=== PATIENT | male | born 1940 | race Caucasian/White ===

== ENCOUNTER → 2019-01-18 | Outpatient (CLI) | payer MEDICARE, BC | END | disposition home or self-care (01) | LOC: CVU 07:01 | PROVIDERS: ATTEND Internal Medicine Cardiovascular Disease | DX: Z01.818 Encounter for other preprocedural examination (principal); I65.23 Occlusion and stenosis of bilateral carotid arteries; I34.0 Nonrheumatic mitral (valve) insufficiency; I63.81 Other cerebral infarction due to occlusion or stenosis of small artery; I25.10 Atherosclerotic heart disease of native coronary artery without angina pectoris; I10 Essential (primary) hypertension; E78.5 Hyperlipidemia, unspecified; Z95.1 Presence of aortocoronary bypass graft | CPT/HCPCS: 93306; 93880 ==

== ENCOUNTER 2019-01-24 06:27 | Inpatient (IN) | payer MEDICARE, BC ==
[~2019-01-24] VITALS: Ht 172.7 cm; Wt 91.9 kg
[2019-01-24] MEDS ORDERED: FENTANYL PF 250 MCG/5ML ONE (07:03)
[2019-01-24] MEDS ORDERED: MIDAZOLAM 1 MG/ML, 2ML ONE (07:03)
[2019-01-24] MEDS ORDERED: THROMBIN 20,000 UNIT VIAL TP ONE (07:14)
[2019-01-24] MEDS ORDERED: BUPIVACAINE/EPI 0.5% 1:200K ONE (07:14)
[2019-01-24] MEDS ORDERED: MICROFIBRILLAR COLLAGEN 1 GM TP ONE (07:14)
[2019-01-24] MEDS ORDERED: BACITRACIN 50,000 UNIT ONE (07:14)
[2019-01-24] MEDS ORDERED: ASPI-496 PO (07:36)
[2019-01-24] MEDS ORDERED: LACTATED RINGERS 1,000 ML IV SCH (07:36)
[2019-01-24] MEDS ORDERED: EZET10TA18 PO (07:36)
[2019-01-24] MEDS ORDERED: METO1TAB28 PO (07:36)
[2019-01-24] MEDS ORDERED: ATOR20TA37 PO (07:36)
[2019-01-24] MEDS ORDERED: OMEP-110 PO (07:36)
[2019-01-24] MEDS ORDERED: THROMBIN 5,000 UNIT VIAL TP ONE (07:43)
[2019-01-24] MEDS ORDERED: LIDOCAINE-MPF 1%, 2ML INFIL ONE (08:00)
[2019-01-24 08:02] VITALS: BP 109/74
[2019-01-24] MEDS ORDERED: OXYcodone 5 MG/5 ML ORAL.SOL UDC PO PRN (11:00)
[2019-01-24] MEDS ORDERED: PROMETHAZINE 25 MG/ML, 1ML IV PRN (11:00)
[2019-01-24] MEDS ORDERED: ONDANSETRON 2MG/ML, 2ML IVPush PRN ×2 (11:00→12:00)
[2019-01-24] MEDS ORDERED: MEPERIDINE/PF 25MG/0.5ML IVPush PRN (11:00)
[2019-01-24] MEDS ORDERED: ALBUTEROL SULFATE 2.5 MG/3 ML NPPB PRN (11:00)
[2019-01-24] MEDS ORDERED: LABETALOL 5MG/ML, 20ML IV PRN (11:00)
[2019-01-24] MEDS ORDERED: METOCLOPRAMIDE 5 MG/ML, 2ML IV PRN (11:00)
[2019-01-24] MEDS ORDERED: hydrALAzine 20 MG/ML, 1ML IV PRN (11:00)
[2019-01-24] MEDS ORDERED: KETOROLAC 30 MG/1 ML IV PRN (11:00)
[2019-01-24] MEDS ORDERED: FENTANYL PF 100 MCG/2ML IV PRN (11:00)
[2019-01-24] MEDS ORDERED: DIPHENHYDRAMINE 50 MG/ML, 1ML IVPush PRN (12:00)
[2019-01-24] MEDS ORDERED: TIZANIDINE 4MG TABLET PO PRN (12:00)
[2019-01-24] MEDS ORDERED: MEPERIDINE/PF 100 MG/ML IM PRN (12:00)
[2019-01-24] MEDS ORDERED: BISACODYL 10 MG SUPP PR PRN (12:00)
[2019-01-24] MEDS ORDERED: HYDROcodone/APAP 10/325 MG TABLET PO PRN (12:00)
[2019-01-24] MEDS ORDERED: PHARMACY MAY ADJ FOR RENAL FX MC PRN (12:00)
[2019-01-24] MEDS ORDERED: OMEPRAZOLE 20 MG CAPSULE.DR PO PRN (12:00)
[2019-01-24] MEDS ORDERED: OXYcodone/APAP 5/325MG TABLET PO PRN (12:00)
[2019-01-24] MEDS ORDERED: MAGNESIUM HYDROXIDE 8%, 30ML UDC PO PRN (12:00)
[2019-01-24] MEDS ORDERED: HYDROmorphone 1 MG/ML, 1ML INJ IVPush PRN (12:00)
[2019-01-24] MEDS ORDERED: OXYcodone 5 MG/5 ML ORAL.SOL UDC ONE (12:20)
[2019-01-24] MEDS ORDERED: HYDROmorphone 2 MG/ML, 1ML ONE (12:20)
[2019-01-24] MEDS: HYDROmorphone 1 MG/ML, 1ML INJ IV PRN ×2 (12:24→12:32)
[2019-01-24] MEDS ORDERED: TIZANIDINE 2MG TABLET PO PRN (14:00)
[2019-01-24] MEDS ORDERED: SUCCINYLCHOLINE 20 MG/ML, 10ML ONE (14:53)
[2019-01-24] MEDS ORDERED: CEFAZOLIN 1,000 MG ONE (14:53)
[2019-01-24] MEDS ORDERED: DEXAMETHASONE 4 MG/ML, 5ML ONE (14:53)
[2019-01-24] MEDS ORDERED: ONDANSETRON 2MG/ML, 2ML ONE (14:53)
[2019-01-24] MEDS ORDERED: PROPOFOL 10 MG/ML, 50ML ONE (14:53)
[2019-01-24] MEDS: NS + 20MEQ KCL 1,000 ML IV SCH (16:59)
[2019-01-24] MEDS: CEFAZOLIN PMX 1GM/50ML 50 ML IVPB SCH (17:56)
[2019-01-24 19:01] VITALS: BP 143/79
[2019-01-24] MEDS: ATORVASTATIN 20 MG TABLET PO SCH (20:53)
[2019-01-24] MEDS ORDERED: METOPROLOL SUCCINATE PO SCH (21:00)
[2019-01-24] MEDS ORDERED: [UNRECOGNIZED DRUG - OTHER] PO SCH (21:00)
[2019-01-24] MEDS: SODIUM CHLORIDE FLUSH 10ML SYR IVF SCH (21:00)
[2019-01-24] MEDS ORDERED: HCTZ PO SCH (21:00)
[2019-01-24] MEDS: METOPROLOL SUCCINATE 25 MG TAB.ER.24H PO SCH (22:01)
[2019-01-25 00:15] VITALS: BP 144/78
[2019-01-25] MEDS: CEFAZOLIN PMX 1GM/50ML 50 ML IVPB SCH (03:23)
[2019-01-25] MEDS: NS + 20MEQ KCL 1,000 ML IV SCH ×3 (03:23→22:00)
[2019-01-25 05:09] VITALS: BP 145/86
[2019-01-25 07:15] VITALS: BP 149/72
[2019-01-25] MEDS ORDERED: HYDROCHLOROTHIAZIDE 12.5 MG CAPSULE PO SCH (09:00)
[2019-01-25] MEDS: METOPROLOL SUCCINATE 25 MG TAB.ER.24H PO SCH (09:00)
[2019-01-25] MEDS: EZETIMIBE 10 MG TABLET PO SCH (09:00)
[2019-01-25] MEDS: SENNA/DOCUSATE TABLET PO SCH (09:00)
[2019-01-25] MEDS: SODIUM CHLORIDE FLUSH 10ML SYR IVF SCH ×2 (09:10→20:33)
[2019-01-25] MEDS: DEXAMETHASONE 4 MG/ML, 1ML IVPush SCH ×3 (09:10→20:33)
[2019-01-25 14:56] VITALS: BP 152/85
--- NOTE | 2019-01-25 16:29 | NUR ---
REC: Full liquid diet per patient request, advance as tolerated Addendum: 01/25/19 at 1629 by Fabiana SMALLWOOD Amended: Links added.
[2019-01-25] MEDS: METOPROLOL TARTRATE 25 MG TABLET PO SCH (17:10)
[2019-01-25 19:43] VITALS: BP 127/81
[2019-01-25] MEDS: ATORVASTATIN 20 MG TABLET PO SCH (20:34)
[2019-01-26 01:13] VITALS: BP 129/80
[2019-01-26] MEDS: DEXAMETHASONE 4 MG/ML, 1ML IVPush SCH ×2 (02:33→08:45)
[2019-01-26] MEDS: METOPROLOL TARTRATE 25 MG TABLET PO SCH (05:15)
[2019-01-26] MEDS: NS + 20MEQ KCL 1,000 ML IV SCH (08:00)
[2019-01-26] MEDS: SENNA/DOCUSATE TABLET PO SCH (08:45)
[2019-01-26] MEDS: EZETIMIBE 10 MG TABLET PO SCH (08:45)
[2019-01-26] MEDS: SODIUM CHLORIDE FLUSH 10ML SYR IVF SCH (08:46)
[2019-01-26] MEDS ORDERED: METH4TAB2 PO (09:15)
[2019-01-26 09:47] VITALS: BP 117/78
== END 2019-01-26 12:00 | disposition home or self-care (01) | DRG 472 ==
LOC: OUT 06:27 → 4NOR 13:45 → OUT 22:42 → 4NOR 22:43 → DCLOUNGE 01-26 11:44
PROVIDERS: ADMIT Neurological Surgery; ATTEND Neurological Surgery
PROC: 0RG10A0 Fusion of Cervical Vertebral Joint with Interbody Fusion Device, Anterior Approach, Anterior Column, Open Approach (ICD-10-PCS; 2019-01-24)
PROC: 4A11X4G Monitoring of Peripheral Nervous Electrical Activity, Intraoperative, External Approach (ICD-10-PCS; 2019-01-24)
PROC: 0RB30ZZ Excision of Cervical Vertebral Disc, Open Approach (ICD-10-PCS; principal; 2019-01-24 09:30)
DX: M25.78 Osteophyte, vertebrae (principal); M50.021 Cervical disc disorder at C4-C5 level with myelopathy; R13.10 Dysphagia, unspecified; E78.00 Pure hypercholesterolemia, unspecified; G43.909 Migraine, unspecified, not intractable, without status migrainosus; G47.30 Sleep apnea, unspecified; M48.10 Ankylosing hyperostosis [Forestier], site unspecified; I25.10 Atherosclerotic heart disease of native coronary artery without angina pectoris; M19.90 Unspecified osteoarthritis, unspecified site; Z96.652 Presence of left artificial knee joint; Z87.01 Personal history of pneumonia (recurrent); Z95.1 Presence of aortocoronary bypass graft; Z82.61 Family history of arthritis; Z82.49 Family history of ischemic heart disease and other diseases of the circulatory system; Z88.8 Allergy status to other drugs, medicaments and biological substances
CPT/HCPCS: 36415; 72040; 74230; 86850; 86900; 95938; 95941; C1713; G0378; J0690; J1100; J1170; J2250; J2405; J2704; J3010; J3480; J0330; J7120

== ENCOUNTER 2019-08-21 08:14 | Outpatient (CLI) | payer MEDICARE, BC ==
[~2019-08-21 08:14] MED LIST: ASPI-496 PO; ATOR20TA37 PO; EZET10TA70 PO; METH4TAB2 PO; METO1TAB28 PO; OMEP-110 PO; REGADENOSON 0.4 MG/5 ML SYRINGE ONE
== END 2019-08-21 23:59 | disposition home or self-care (01) ==
LOC: CFH 08:14
PROVIDERS: ATTEND Internal Medicine Cardiovascular Disease
DX: Z01.810 Encounter for preprocedural cardiovascular examination (principal)
CPT/HCPCS: 78452; 93017; A9502; J2785

== ENCOUNTER 2021-06-23 13:28 | Outpatient (CLI) | payer MEDICARE, BC ==
[~2021-06-23 13:28] MED LIST changes: -REGADENOSON 0.4 MG/5 ML SYRINGE ONE
== END 2021-06-23 23:59 | disposition home or self-care (01) ==
LOC: CFH 13:28
PROVIDERS: ATTEND Internal Medicine Cardiovascular Disease
DX: I08.8 Other rheumatic multiple valve diseases (principal); I25.10 Atherosclerotic heart disease of native coronary artery without angina pectoris
CPT/HCPCS: 93306; 93356